=== PATIENT | female | born 1960 | race Caucasian/White ===

== ENCOUNTER 2020-08-29 10:22 | Day surgery (SDC) | payer OTHER, SELFPAY ==
[2020-08-29] VITALS (13 sets, daily range): BP systolic 125–183; BP diastolic 53–78; PULSE 66–91; RESP 16–26; TEMP 36.6–37.8; O2SAT 91–99; BMI 30.2
--- NOTE | 2020-08-29 11:40 | CT_ITS ---
WS: [id number] CT scan of the abdomen and pelvis with IV contrast. Additional two-dimensional coronal and sagittal r econstruction was performed. 08/29/2020 Clinical Data: abdominal pain RLQ Comparison: None. DLP: 1642.[address] scans at [facility] use at least one of these dose optimization techniques: automat ed exposure control; mA and/or kV adjustment per patient size (includes targeted exams where dose is matched to clinical indication); or iterative reconstruction. Findings: The lower lungs show no nodules, masses or effusions. The liver, spleen, adrenal glands and pancreas are normal. There are clips in the gallbladder fossa f rom a cholecystectomy. The kidneys show equal bilateral contrast excretion with bilateral simple cysts. No hydronephrosis, m asses or renal calculi are seen.. The abdominal aorta is normal in size with calcification in the wall.. There is appendicitis with an appendicolith. The appendix is dilated to 1.5 cm with apparent appendic eal fluid. No periappendiceal abscess is noted. The stomach, small bowel and colon show no abnormalities. No abscess, adenopathy, ascites, mass, obst ruction or free air is seen. The bladder is unremarkable. The uterus is enlarged with leiomyomas within. No inguinal hernia is see n. The bones of the lower thorax, lumbar spine, pelvis, and hips show osteoarthritis of the lumbar spine with loss of the normal lordotic curvature. CT/CT abdomen pelvis w con* [id number] Impression: 1. Acute appendicitis with periappendiceal fluid and an appendicolith. 2. Negative for appendiceal abscess.
--- NOTE | 2020-08-29 12:05 | ED_ITS ---
HPI - Abdominal Pain General: Chief Complaint: Abdominal Pain Stated Complaint: R lower ABD pain Time Seen by Provider: 08/29/20 11:40 History of Present Illness: HPI narrative: Patient seen at [facility] earlier today and sent here for further evaluation. Patient has had abdominal pain since last night. This pain is located in right lower quadrant she states. Also has some diarrhea and vomiting last night. And a fever. MD elicited complaint: abdominal pain Onset (ago): hour(s) Pain Consistency: constant Location: RLQ Severity: moderate Quality: aching Migration to: no migration Exacerbating factors: movement Relieving factors: nothing Associated Symptoms: Reports diarrhea, nausea and vomiting; Denies chills and fever(s) Review of Systems Const: Denies: fever(s), chills or body aches Eyes: Denies: change in vision or blurry vision ENMT: Denies: throat pain or nasal congestion Card: Denies: chest pain or dyspnea on exertion Resp: Denies: dyspnea, productive cough or non-productive cough GI: Reports: abdominal pain, nausea, vomiting and diarrhea Musc: Denies: extremity pain Skin/Breast: Denies: rash Neuro: Denies: headache(s) Psych: Denies: anxiety or depression Harsh/Lymph: Denies: easy bruising PFSH ED PFSH: Social History Smoking and tobacco status: never smoked Physical Exam Const: COMMON NORMALS: no acute distress, average body habitus and patient oriented x3 HENMT: COMMON NORMALS: normocephalic HEAD & SCALP: normal to inspection and normocephalic FACE & SINUS: normal facial exam Eye: COMMON NORMALS: conjunctivae normal GENERAL EYE: appearance normal, both eyes and all related structures CONJUNCTIVA: Yes conjunctivae normal Neck/C-Spine: COMMON NORMALS: no JVD Chest: COMMONS NORMALS: normal inspection of the chest Resp: COMMON NORMALS: normal respiratory effort and clear to auscultation bilaterally AUSCULTATION: clear to auscultation bilaterally Cardio: COMMON NORMALS: no JVD, regular rate and regular rhythm RATE: regular rate RHYTHM: regular rhythm GI: PALPATION: Yes Tenderness to palpation present (GI) Details: RLQ Extremity: COMMON NORMALS: normal to inspection and full ROM Neuro: COMMON NORMALS: patient oriented x3 Course Vital Signs: Vital signs: Vital Signs Temperature 99.1 F 08/29/20 10:34 Pulse Rate 91 08/29/20 10:34 Respiratory Rate 18 08/29/20 10:34 Blood Pressure 183/78 08/29/20 10:34 Pulse Oximetry 96 08/29/20 10:34 MDM - Abdominal Pain MDM Narrative: Medical decision making narrative: I communicated with Dr. Amaro through the OR nurse about patient's radiology report laboratories studies. Dr. Gutiérrez says preop and get her ready for surgery. Discussed with patient patient is amenable to these plans. Lab Data: Labs: Lab Results 08/29/20 08/29/20 08/29/20 Range/Units 11:15 12:05 12:05 WBC 16.1 H (4.0-10.0) 10^3/ uL RBC 4.16 (4.1-5.3) 10^6/u L Hgb 11.8 (11.5-15.3) g/dL Hct 36.4 L (37.0-47.0) % MCV 87.5 (81-99) fL MCH 28.4 (28.0-34.0) pg MCHC 32.4 (30.0-36.0) g/dL RDW 13.2 (12.1-15.1) % Plt Count 304 (130-400) 10^3/c mm MPV 9.7 (7.4-10.4) fL Neut % (Auto) 80.8 % Lymph % (Auto) 10.7 % Hardy % (Auto) 7.9 % Eos % (Auto) 0.1 % Baso % (Auto) 0.2 % Neut # (Auto) 13.03 H (1.8-7.7) 10^3/u L Lymph # (Auto) 1.7 (0.8-4.8) 10^3/u L Hardy # (Auto) 1.3 H (0.2-0.9) 10^3/u L Eos # (Auto) 0.0 (0.0-0.8) 10^3/u L Baso # (Auto) 0.0 (0.0-0.1) 10^3/u L Nucleated RBC % (a uto) 0 % Nucleated RBCs # 0.0 /100WBC Sodium 141 (136-145) mmol/L Potassium 3.2 L (3.5-5.1) mmol/L Chloride 102 (98-107) mmol/L Carbon Dioxide 29 (22-29) mmol/L Anion Gap 13.2 (5-19) BUN 14 (8-23) mg/dL Creatinine 0.5 (0.5-0.9) mg/dL GFR Calculation 125.4 (90-130) mL/min Glucose 112 (65-115) mg/dL Calculated Osmolal ity 293 (285-295) mOsm/k g Lactate (0.5-2.2) mmol/L Calcium 8.6 (8.5-10.5) mg/dL Total Bilirubin 0.4 (0.15-1.2) mg/dL AST 9 (0-32) U/L ALT 11 (0-33) U/L Alkaline Phosphata se 80 (35-105) IU/L Total Protein 6.3 L (6.6-8.7) g/dL Albumin 4.2 (3.5-5.2) g/dL Globulin 2.1 (1.3-4.6) g/dL Lipase 20 (13-60) U/L Urine Color Yellow (Yellow) Urine Appearance Clear (CLEAR) Urine pH 5 (5-7) Ur Specific Gravit y 1.025 (1.005-1.030) Urine Protein Neg (Negative) Urine Glucose (UA) Norm (Normal) Urine Ketones Negative (Negative) Urine Blood 3+ H (Negative) Urine Nitrate Negative (Negative) Urine Bilirubin Neg (Negative) Urine Urobilinogen Norm (Negative) mg/dL Ur Leukocyte Rafaela ase Negative (Negative) Urine RBC 15-25 H (0-2) /hpf Urine WBC None (0-5) /hpf Ur Squamous Epith Cells 0-4 H (0-5) /hpf Amorphous Sediment Not Reportable Urine Bacteria Trace (NONE) /hpf 08/29/20 Range/Units 12:35 WBC (4.0-10.0) 10^3/ uL RBC (4.1-5.3) 10^6/u L Hgb (11.5-15.3) g/dL Hct (37.0-47.0) % MCV (81-99) fL MCH (28.0-34.0) pg MCHC (30.0-36.0) g/dL RDW (12.1-15.1) % Plt Count (130-400) 10^3/c mm MPV (7.4-10.4) fL Neut % (Auto) % Lymph % (Auto) % Hardy % (Auto) % Eos % (Auto) % Baso % (Auto) % Neut # (Auto) (1.8-7.7) 10^3/u L Lymph # (Auto) (0.8-4.8) 10^3/u L Hardy # (Auto) (0.2-0.9) 10^3/u L Eos # (Auto) (0.0-0.8) 10^3/u L Baso # (Auto) (0.0-0.1) 10^3/u L Nucleated RBC % (a uto) % Nucleated RBCs # /100WBC Sodium (136-145) mmol/L Potassium (3.5-5.1) mmol/L Chloride (98-107) mmol/L Carbon Dioxide (22-29) mmol/L Anion Gap (5-19) BUN (8-23) mg/dL Creatinine (0.5-0.9) mg/dL GFR Calculation (90-130) mL/min Glucose (65-115) mg/dL Calculated Osmolal ity (285-295) mOsm/k g Lactate 1.5 (0.5-2.2) mmol/L Calcium (8.5-10.5) mg/dL Total Bilirubin (0.15-1.2) mg/dL AST (0-32) U/L ALT (0-33) U/L Alkaline Phosphata se (35-105) IU/L Total Protein (6.6-8.7) g/dL Albumin (3.5-5.2) g/dL Globulin (1.3-4.6) g/dL Lipase (13-60) U/L Urine Color (Yellow) Urine Appearance (CLEAR) Urine pH (5-7) Ur Specific Gravit y (1.005-1.030) Urine Protein (Negative) Urine Glucose (UA) (Normal) Urine Ketones (Negative) Urine Blood (Negative) Urine Nitrate (Negative) Urine Bilirubin (Negative) Urine Urobilinogen (Negative) mg/dL Ur Leukocyte Rafaela ase (Negative) Urine RBC (0-2) /hpf Urine WBC (0-5) /hpf Ur Squamous Epith Cells (0-5) /hpf Amorphous Sediment Urine Bacteria (NONE) /hpf Discharge Plan Discharge Prescriptions: No Action lisinopril 20 mg tablet 20 mg PO DAILY RF: 0 prednisone 20 mg tablet 40 mg PO DAILY 5 Days Qty: 10 RF: 0 calcium 1 tab PO DAILY RF: 0 magnesium 1 tab PO DAILY RF: 0 zinc 1 tab PO DAILY RF: 0 Coding Level 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
[2020-08-29 12:21] LABS: Basophils % 0.2 %; Eosinophils % 0.1 %; Hematocrit 36.4 % (37.0-47.0); Hemoglobin 11.8 g/dL (11.5-15.3); Lymphocytes # 1.7 10^3/uL (0.8-4.8); Lymphocytes % 10.7 %; Mean Corpuscular HGB Conc 32.4 g/dL (30.0-36.0); Mean Corpuscular Hemoglobin 28.4 pg (28.0-34.0); Mean Corpuscular Volume 87.5 fL (81-99); Mean Platelet Volume 9.7 fL (7.4-10.4); Monocytes # 1.3 10^3/uL (0.2-0.9); Monocytes % 7.9 %; Neutrophils # 13.03 10^3/uL (1.8-7.7); Neutrophils % 80.8 %; Nucleated Red Blood Cells % 0 %; Platelet Count 304 10^3/cmm (130-400); Red Blood Count 4.16 10^6/uL (4.1-5.3); Red Cell Distribution Width 13.2 % (12.1-15.1); White Blood Count 16.1 10^3/uL (4.0-10.0)
[2020-08-29] MEDS: sodium chloride 0.9% 1,000 ML 999 ML IV (12:23)
[2020-08-29 12:36] LABS: Alanine Aminotransferase 11 U/L (0-33); Albumin Level 4.2 g/dL (3.5-5.2); Alkaline Phosphatase 80 IU/L (35-105); Anion Gap 13.2 (5-19); Aspartate Amino Transferase 9 U/L (0-32); Blood Urea Nitrogen 14 mg/dL (8-23); Calcium 8.6 mg/dL (8.5-10.5); Carbon Dioxide 29 mmol/L (22-29); Chloride 102 mmol/L (98-107); Globulin 2.1 g/dL (1.3-4.6); Glomerular Filtration Rate 125.4 mL/min (90-130); Glucose 112 mg/dL (65-115); Lipase 20 U/L (13-60); Osmolality Calculated 293 mOsm/kg (285-295); Potassium 3.2 mmol/L (3.5-5.1); Sodium 141 mmol/L (136-145); Total Bilirubin 0.4 mg/dL (0.15-1.2); Total Protein 6.3 g/dL (6.6-8.7)
[2020-08-29 12:45] LABS: Bilirubin Urine Neg (Negative); Blood Urine 3+ (Negative); Glucose Urine UA Norm (Normal); Ketones Urine Negative (Negative); Nitrate Urine Negative (Negative); Protein Urine Neg (Negative); Specific Gravity, Urine 1.025 (1.005-1.030); Urine Appearance Clear (CLEAR); Urine Color Yellow (Yellow); pH Urine 5 (5-7)
[2020-08-29 12:46] LABS: Add Urine Culture? No; Add Urine Microscopic? YES; Bacteria Urine TRACE /hpf; Leukocyte Esterase Urine Negative (Negative); RBC Urine 15-25 /hpf (0-2); Squamous Epithelial Cell Urine 0-4 /hpf (0-5); Urobilinogen Urine Norm (Negative)
[2020-08-29] MEDS: iohexol 300 mg/mL 100 mL Btl IV (13:09)
[2020-08-29 13:12] LABS: Lactate (Lactic Acid level) 1.5 mmol/L (0.5-2.2)
--- NOTE | 2020-08-29 13:30 | ECG_ITS ---
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 Measurements Intervals [place] Rate: 82 P: 61 WV: 176 QRS: 23 QRSD: 89 T: 39 QT: 372 QTc: 436 Interpretive Statements SINUS RHYTHM POSSIBLE LEFT ATRIAL ENLARGEMENT [-0.1mV P WAVE IN V1/V2] LOW QRS VOLTAGE IN PRECORDIAL LEADS [QRS DEFLECTION < 1.0 mV IN CHEST LEADS] POSSIBLE RIGHT VENTRICULAR CONDUCTION DELAY [RSR (QR) IN V1/V2] No previous ECG available for comparison Electronically Signed On 08-30-2020 6:14:05 CDT by Lamar Pulido M.D. [id number]
--- NOTE | 2020-08-29 13:30 | XR_ITS ---
WS: [id number] Portable AP upright chest, 08/29/2020 Clinical Data: appendicitis Comparison: None. Findings: No nodules, masses or effusions are seen. The heart is normal. The pulmonary vascularity is not increased. No pneumonia or pneumothorax is seen. XR/XR chest 1V portable [id number] Impression: Negative chest.
[2020-08-29] MEDS: potassium chloride ER 20 mEq Tablet PO (13:55)
[2020-08-29] MEDS: piperacillin-tazobactam 2.25 GM in sodium chloride 0.9% (plus) 50 ML IV (14:05)
--- NOTE | 2020-08-29 14:58 | P.HP_ITS ---
Providers/Chief Complaint Chief Complaint: R lower ABD pain History of Present Illness Cee Arriaga is a 60 year old female who presented to the ER with 24-hour history of right lower quadrant pain of 24 hours duration. Patient states the pain started yesterday evening and progressively worsened during the course of the day today. Patient had nausea with multiple episodes of emesis. She denies any fevers, chills, constipation, diarrhea. Review of Systems General: Reports: 10 or more systems reviewed and unremarkable except in HPI and below Medications/Allergies Home Medications Medication Instructions Recorded Confirmed Last Taken Type lisinopril 20 mg tablet 20 mg PO DAILY 08/19/19 08/29/20 08/28/20 History prednisone 20 mg tablet 40 mg PO DAILY 5 Days #10 tab 08/24/20 08/29/20 08/28/20 Rx calcium 1 tab PO DAILY 08/29/20 08/29/20 08/28/20 History magnesium 1 tab PO DAILY 08/29/20 08/29/20 08/28/20 History zinc 1 tab PO DAILY 08/29/20 08/29/20 08/28/20 History Allergies Allergy/AdvReac Type Severity Reaction Status Date / Time No Known Allergies Allergy Verified 08/29/20 10:34 PFSH Acute PFSH: Medical History Hypertension Surgical History History of delivery Status post colonoscopy Status post laparoscopic cholecystectomy Social History Smoking and tobacco status: never smoked Vitals/I&O/Wt Last Vital Signs Temp 100.1 F H 08/29/20 14:30 Pulse 78 08/29/20 14:30 Resp 18 08/29/20 14:30 BP 140/69 08/29/20 14:30 Pulse Ox 96 08/29/20 14:30 Weight last 48 hrs Weight 199 lb Weight 199 lb Physical Exam Narrative: EXAM NARRATIVE: HEENT: Normocephalic Eye: Sclera /conjunctiva normal Respiratory and chest: Bilateral clear breath sounds on auscultation Cardiovascular: Normal S1 and S2 heart sounds Abdomen: Soft to palpation, tender RLQ with voluntary guarding Neurological: Oriented to place person and time Skin: Intact, no lesions appreciated on gross exam Data : 08/29/20 12:05 08/29/20 12:05 A&P Assessment and plan (1) Acute appendicitis: 60-year-old female with 24-hour history of right lower quadrant pain, nausea, vomiting. Patient is tender to palpation in the right lower quadrant. WBC is 16.1 CT abdomen pelvis showed acute appendicitis Plan for laparoscopic possible open appendectomy Procedure, risks, benefits and alternatives have been discussed with the patient who wishes to proceed with surgery. Status: Acute Attestations Medical Necessity Statement*: Acute appendicitis Coding Level of Care Code Acute Shipping And Receiving Material Handler for [facility] Diagnoses Acute appendicitis K35.80
--- NOTE | 2020-08-29 15:19 | ANES.PREANE2 ---
Pre-Anesthetic Assessment Pre-Anesthetic Assessment: Height/Weight: Height 1.73 m Weight 90.265 kg Temp Pulse Resp BP Pulse Ox 100.1 F H 78 18 140/69 96 08/29/20 14:30 08/29/20 14:30 08/29/20 14:30 08/29/20 14:30 08/29/20 14:30 Preop Diagnosis: Acute appendicitis Proposed Procedure: Operation Date: 08/29/20 15:20 Proposed Procedures p Laparoscopic Appendectomy(Not Applicable) - Partha Amaro MD Was Beta Mayra taken within 24 hours: N/A Was Clonidine taken within 24 hours: N/A Last intake: Intake Last Liquid Date 08/28/20 Last Liquid Time 19:00 Last Solid Date 08/28/20 Last Solid Time 19:00 Social: Social History: No alcohol and No tobacco Exam: Pre-Anes Outpt Exam: alert, oriented x 3, clear to auscultation bilaterally and regular rate & rhythm Airway: Submandibular: WNL Cervical ROM: WNL MP: 2 History/ROS: No significant history except as noted Pulmonary: Pulmonary: None reported CV/HEM: CV/HEM: HTN : : None reported Hepatic: Hepatic: None reported GI: Comments: Localizing abdominal pain; N/V Metabolic: Metabolic: None reported Musc/skel: Musc/skel: None reported Neuropsych: Neuropsych: None reported Anesthetic Plan: ASA status: 2E Anesthesia: General PFSH Anesthesia PFSH: Medical History Hypertension Surgical History History of delivery Status post colonoscopy Status post laparoscopic cholecystectomy Social History Smoking and tobacco status: never smoked Data Anesthesia CBC & Chem 7: 08/29/20 12:05 08/29/20 12:05 Other Labs: Laboratory Results - last 48 hr 08/29/20 08/29/20 08/29/20 11:15 12:05 12:05 WBC 16.1 H RBC 4.16 Hgb 11.8 Hct 36.4 L MCV 87.5 MCH 28.4 MCHC 32.4 RDW 13.2 Plt Count 304 MPV 9.7 Neut % (Auto) 80.8 Lymph % (Auto) 10.7 [place] % (Auto) 7.9 Eos % (Auto) 0.1 Baso % (Auto) 0.2 Neut # (Auto) 13.03 H Lymph # (Auto) 1.7 [place] # (Auto) 1.3 H Eos # (Auto) 0.0 Baso # (Auto) 0.0 Nucleated RBC % (auto) 0 Nucleated RBCs # 0.0 Sodium 141 Potassium 3.2 L Chloride 102 Carbon Dioxide 29 Anion Gap 13.2 BUN 14 Creatinine 0.5 GFR Calculation 125.4 Glucose 112 Calculated Osmolality 293 Lactate Calcium 8.6 Total Bilirubin 0.4 AST 9 ALT 11 Alkaline Phosphatase 80 Total Protein 6.3 L Albumin 4.2 Globulin 2.1 Lipase 20 Urine Color Yellow Urine Appearance Clear Urine pH 5 Ur Specific [place] 1.025 Urine Protein Neg Urine Glucose (UA) Norm Urine Ketones Negative Urine Blood 3+ H Urine Nitrate Negative Urine Bilirubin Neg Urine Urobilinogen Norm Ur Leukocyte Esterase Negative Urine RBC 15-25 H Urine WBC None Ur Squamous Epith Cells 0-4 H Amorphous Sediment Not Reportable Urine Bacteria Trace 08/29/20 12:35 WBC RBC Hgb Hct MCV MCH MCHC RDW Plt Count MPV Neut % (Auto) Lymph % (Auto) [place] % (Auto) Eos % (Auto) Baso % (Auto) Neut # (Auto) Lymph # (Auto) [place] # (Auto) Eos # (Auto) Baso # (Auto) Nucleated RBC % (auto) Nucleated RBCs # Sodium Potassium Chloride Carbon Dioxide Anion Gap BUN Creatinine GFR Calculation Glucose Calculated Osmolality Lactate 1.5 Calcium Total Bilirubin AST ALT Alkaline Phosphatase Total Protein Albumin Globulin Lipase Urine Color Urine Appearance Urine pH Ur Specific [place] Urine Protein Urine Glucose (UA) Urine Ketones Urine Blood Urine Nitrate Urine Bilirubin Urine Urobilinogen Ur Leukocyte Esterase Urine RBC Urine WBC Ur Squamous Epith Cells Amorphous Sediment Urine Bacteria Cardiac Studies: No Data to Display
[2020-08-29 15:24] LABS: INR 1.06 (0.8-1.2)
[2020-08-29 15:25] LABS: Partial Thromboplastin Time 25.7 SECONDS (23.9-36.7)
[2020-08-29] MEDS: sodium chloride 0.9% 1,000 ML 30 ML IV (15:56)
--- NOTE | 2020-08-29 16:39 | PM.OP ---
Operative Report Date of procedure: August 29, 2020 Pre-op Diagnosis: Acute appendicitis Post-op Diagnosis: Acute suppurative appendicitis Procedure Done: Laparoscopic appendectomy Specimens removed/disposition: Appendix Surgeon: Partha Amaro Anesthesia: General Condition: stable Disposition: PACU Procedure: The patient was taken to the Operating Room and intubated under general anesthesia after antibiotic had been administered. Using a 15 blade, a 1-cm infraumbilical incision was made and using open Alberto technique, the peritoneal cavity was entered. A 12mm port with balloon was placed and 14 mm of pneumoperitoneum was created and 10-mm 30 degree scope was introduced. Two separate 5mm ports were placed in the left and right lower quadrant under direct visualization. The appendix was noted in the right lower quadrant and appeared acutely inflamed. There was purulent fluid noted in the pelvis which was irrigated and suctioned out. Using [place] forceps, an opening was made in the mesoappendix near the base of the appendix. An Endo HEYDI stapler 45mm long 3.5mm blue load was introduced to divide the appendix at it's base. Using electrocautery, the mesoappendix including the appendicular artery was divided. There was no bleeding noted and the staple line appeared intact. The right lower quadrant was irrigated with saline and an EndoCatch bag was introduced to remove the appendix. All three ports were removed under direct visualization and there was no bleeding noted on the port sites. 10cc of 0.5% Marcaine was infiltrated at the port sites. The fascia at the umbilical port was closed using figure of eight 0-Vicryl sutures and subcutaneous tissue was approximated using 3-0 Vicryl and skin at all 3 port sites was closed using 4-0 Monocryl and Dermabond. The patient was extubated and transferred recovery room in stable condition.
--- NOTE | 2020-08-29 16:55 | ANE.PACU2 ---
Inpatient post-anesthesia follow up: Airway intact: Yes Vital signs: Temperature 99.4 F Pulse Rate [Monito r] 91 Pulse Rate 86 Respiratory Rate 26 Blood Pressure [Le ft Arm] 183/78 Blood Pressure 143/56 Pulse Oximetry 91 Oxygen Delivery Me thod Room Air Oxygen Flow Rate Fraction of Inspir ed Oxygen Hydration adequate: Yes Nausea and vomiting: No Pain level: 4 Mental status: Baseline
[2020-08-29] MEDS: fentaNYL 50 mcg/mL INJ 2mL IVP (16:57)
[2020-08-29] MEDS: HYDROcodone-acetaminophen 5-325 mg Tablet 1 TAB PO (17:27)
== END 2020-08-29 18:15 | disposition home or self-care (01) ==
LOC: ER 11:41 → OR 13:42
PROVIDERS: Family Medicine; Emergency Provider Nurse Practitioner Family; Visit Provider Surgery
PROC: 0DTJ4ZZ Resection of Appendix, Percutaneous Endoscopic Approach (ICD-10-PCS; CPT 44970; principal; 2020-08-29 15:00)
DX: K35.80 Unspecified acute appendicitis (principal); I10 Essential (primary) hypertension
CPT/HCPCS: 44970; 36415; 71045; 74177; 80053; 81001; 83605; 83690; 85025; 85610; 85730; 88304; 93005; J0330; J1100; J2001; J2250; J2405; J2543; J2704; J2710; J3010; J3490; J7030; Q9967

== ENCOUNTER → 2021-01-07 15:38 | Outpatient (BNVA) | payer OTHER, SELFPAY | PROVIDERS: Visit Provider Nurse Practitioner Family | DX: M79.671 Pain in right foot (principal); M21.611 Bunion of right foot; M77.31 Calcaneal spur, right foot | CPT/HCPCS: 73630 ==